=== PATIENT | male | born 1995 | race Two or more races ===

== ENCOUNTER 2016-08-09 21:16 | Emergency (ER) | payer MEDICAID ==
[~2016-08-09] VITALS: Ht 182.9 cm; Wt 73.9 kg
[~2016-08-09 21:16] MED LIST: INSUINJ37 SUBCUT
[2016-08-09 21:30] VITALS: BP 130/87
[2016-08-10] MEDS ORDERED: IBUPROFEN 600 MG TAB PO ONE (01:00)
== END 2016-08-10 01:24 | disposition home or self-care (01) ==
LOC: ER 21:30
DX: S46.912A Strain of unspecified muscle, fascia and tendon at shoulder and upper arm level, left arm, initial encounter (principal); E11.9 Type 2 diabetes mellitus without complications; Z79.4 Long term (current) use of insulin; R51 Headache; V43.52XA Car driver injured in collision with other type car in traffic accident, initial encounter; Y93.89 Activity, other specified; Y92.89 Other specified places as the place of occurrence of the external cause; Y99.8 Other external cause status
CPT/HCPCS: 70450; 72125

== ENCOUNTER 2016-10-25 22:36 | Emergency (ER) | payer SELFPAY ==
[~2016-10-25] VITALS: Ht 177.8 cm; Wt 80.7 kg
[2016-10-26] MEDS ORDERED: SODIUM CHLORIDE 0.9% 1,000 ML IV ONE (00:15)
[2016-10-26 00:21] LABS: Basophils # (auto) 0 uL; Basophils % (auto) 0.5 % (0.0-2.0); Eosinophils # (auto) 0.1 uL; Eosinophils % (auto) 0.9 % (0.0-7.0); Hematocrit 42.3 % (41.0-53.0); Hemoglobin 14.2 g/dL (13.5-17.5); Lymphocytes # (auto) 1.7 uL; Lymphocytes % (auto) 23.5 % (10.0-50.0); Mean Corpuscular Hemoglobin 32.4 pg (28.0-32.0); Mean Corpuscular Hgb Conc. 33.6 g/dL (32.0-36.0); Mean Corpuscular Volume 96.3 fL (80.0-100.0); Mean Platelet Volume 8.5 fL (7.4-10.4); Monocytes % (auto) 13.7 % (0.0-12.0); Neutrophils # (auto) 4.4 uL; Neutrophils % (auto) 61.4 % (37.0-80.0); Platelet Count (auto) 284 10^3/uL (140-450); Red Cell Distribution Width 13.3 % (11.6-16.0); White Blood Cell 7.2 10^3/uL (4.4-10.8)
[2016-10-26 00:32] LABS: Albumin 3.1 g/dL (3.4-5.0); BUN/Creatinine Ratio 10.9; Potassium 3.4 mmol/L (3.5-5.1)
[2016-10-26 00:41] LABS: Bilirubin, Total 0.2 mg/dL (0.2-1.0); Total Protein 6.5 g/dL (6.4-8.2)
[2016-10-26 02:05] LABS: Urine RBC None Seen /hpf (0 - 3)
[2016-10-26 02:15] LABS: Urine Bilirubin Negative (Negative); Urine Blood Negative /uL (Negative); Urine Color Yellow (Yellow); Urine Glucose 4+ mg/dL (Normal); Urine Ketone TRACE (Negative); Urine Nitrite Negative (Negative); Urine pH 6.5 (5.0-8.0)
[2016-10-26 02:56] VITALS: BP 121/71
== END 2016-10-26 04:52 | disposition home or self-care (01) ==
LOC: EDBD 22:36 → ER 22:37
DX: E11.649 Type 2 diabetes mellitus with hypoglycemia without coma (principal); F19.10 Other psychoactive substance abuse, uncomplicated; R55 Syncope and collapse; Z79.4 Long term (current) use of insulin; R53.1 Weakness
CPT/HCPCS: 36415; 71010; 80053; 80307; 81001; 82962; 85025; 96360; 99285; J7030